=== PATIENT | female | born 1940 ===

== ENCOUNTER → 2018-02-01 | Outpatient (CLI) | payer MEDICARE ==
--- NOTE | 2018-02-01 14:42 | MR ---
EXAMINATION TYPE: MR shoulder RT wo con DATE OF EXAM: 02/01/2018 COMPARISON: Outside radiographs 12/07/2017 HISTORY: 77-year-old female with Right shoulder pain TECHNIQUE: Multiplanar, multisequence imaging of the right shoulder is performed without contrast. FINDINGS: The intracapsular long head biceps tendon is severely thickened with multiple intrasubstance tears an d intermediate signal throughout. The extracapsular portion remains appropriately situated along the bicipital groove. Heterogeneous signal within the subscapularis tendon. The majority of the tendon remains intact. Diffuse heterogeneous signal and thickening of the supraspinatus tendon with prominent intrasubstance change in the deep articular sided tear of the mid supraspinatus tendon fibers measuring 8 mm in AP and 5 mm long just beyond the rotator table. No clear full-thickness extension. Some heterogeneous signal within the infraspinatus tendon and minimal intrasubstance change at the fo otprint. No high-grade partial or full-thickness tear of the infraspinous tendon. There is mild generalized atrophy of the rotator cuff musculature. There is a moderate to large effusion distending the subcoracoid bursa and mild distention of the sup erior subscapularis recess and otherwise a moderate joint effusion. End-stage degenerative change at the glenohumeral joint with essentially complete cartilage loss, bon y remodeling and thinning of the glenoid, and bulky humeral head marginal spurring. Diffusely degener ative and torn glenoid labrum. Some mild reactive edema is present in the glenoid. Moderate degenerative joint space narrowing and marginal spurring at the acromioclavicular joint. No significant encroachment onto the underlying cuff. No Hill-Sachs deformity or os acromiale. Patchy red marrow is present and can be seen in the setting of anemia, obesity, smoking, or chronic disease. No suspicious bone marrow replacement. IMPRESSION: 1. End-stage glenohumeral joint osteoarthrosis with a moderate joint effusion and degenerative bony r emodeling and thinning of the glenoid bone stock. Mild reactive marrow edema. 2. Diffuse rotator cuff tendinosis. There is a small high-grade articular sided tear of the mid supra spinous tendon measuring 5 x 8 mm. No clear full-thickness extension. 3. Mild generalized rotator cuff muscle atrophy. 4. 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 5. Large effusion distending the subcoracoid bursa. 6. Moderate AC joint OA. No significant encroachment onto the underlying cuff.
== END | disposition home or self-care (01) ==
LOC: RADMRIMAIN 11:23
PROVIDERS: ATTEND Orthopaedic Surgery
DX: M19.011 Primary osteoarthritis, right shoulder (principal); M75.101 Unspecified rotator cuff tear or rupture of right shoulder, not specified as traumatic; M62.511 Muscle wasting and atrophy, not elsewhere classified, right shoulder